=== PATIENT | female | born 1980 | race Hispanic/Latino ===

== ENCOUNTER 2020-09-22 19:24 | Emergency (ER) | payer SELFPAY ==
--- NOTE | 2020-09-22 19:28 | ED.GENADULT ---
HPI - General Adult General Chief complaint: Urogenital-Female Stated complaint: back pain/fever/abd pain Time Seen by Provider: 09/22/20 19:38 Source: patient and RN notes reviewed Mode of arrival: ambulatory Limitations: no limitations History of Present Illness HPI narrative: 40-year-old female presents with concern for bilateral flank pain, suprapubic pain, urinary urgency, decreased urine output, fever, chills, headache, nausea, low appetite. She denies diarrhea, vomiting, dysuria, frequency. Reports dark-colored urine. Reports her last menstrual period was 2 months ago, reports irregular menstrual periods at baseline, and history of tubal ligation. Reports symptoms started 3 days ago with bilateral flank pain. MD complaint: abdominal pain Related Data Home Medications Medication Instructions Recorded Confirmed glipizide 09/22/20 metformin 09/22/20 Allergies Allergy/AdvReac Type Severity Reaction Status Date / Time No Known Allergies Allergy Unverified 11/07/14 17:14 Review of Systems Review of Systems: Narrative: CONSTITUTIONAL: Denies malaise, chills, sweats, or fever. CARDIOVASCULAR: Denies chest pain, palpitations, or edema. RESPIRATORY: Denies cough or dyspnea. GASTROINTESTINAL: Denies abdominal pain, vomiting, diarrhea, bloody, or mucous stools. Reports suprapubic discomfort, nausea GENITOURINARY: Denies dysuria, frequency, or hematuria. Reports urine urgency, bilateral flank pain MUSCULOSKELETAL: Reports myalgia. NEUROLOGIC: Reports headache. All systems reviewed & are unremarkable except as noted in HPI and below PMFSH Comments At time of signature, agree with nursing past medical, surgical, social and family history. There is no relevant family history pertinent to the presenting complaint Exam Narrative: Exam Narrative: GENERAL: Well-appearing, well-nourished, and in no acute distress. HEAD: Normocephalic. EYES: PERRLA, conjunctivae clear. NECK: Supple. No lymphadenopathy CHEST: Clear to auscultation. No respiratory distress. HEART: Regular rate and rhythm. ABDOMEN: Soft, nontender upon palpation, nondistended, normal active bowel sounds, no palpable or pulsatile masses, no guarding. Bilateral CVA tenderness SKIN: Warm, dry, no rash. NEURO: Alert and oriented x3. PSYCH: Normal mood and affect Course Course Emergency Course: Patient is aware of diagnosis, understands and agrees to treatment plan. Anticipatory guidance given. Patient agrees to follow-up as directed and is aware of reasons to seek care at the emergency department. Portions of this record may have been created with voice recognition software Vital Signs Vital signs: Vital Signs Temperature 101.9 F H 09/22/20 19:37 Pulse Rate 131 H 09/22/20 19:37 Respiratory Rate 16 09/22/20 19:37 Blood Pressure 108/89 09/22/20 19:37 Pulse Oximetry 99 09/22/20 19:37 Temperature 101.9 F H 09/22/20 19:37 Pulse Rate 131 H 09/22/20 19:37 Respiratory Rate 16 09/22/20 19:37 Blood Pressure 108/89 09/22/20 19:37 Pulse Oximetry 99 09/22/20 19:37 Reviewed. Medical Decision Making MDM Narrative Medical decision making narrative: Exam findings and UA show no acute concerns or changes; patient is non-toxic appearing and is in no distress. Patient is appropriate for outpatient treatment and follow-up. Vital Signs Vital Signs: Vital Signs Temperature 101.9 F H 09/22/20 19:37 Pulse Rate 131 H 09/22/20 19:37 Respiratory Rate 16 09/22/20 19:37 Blood Pressure 108/89 09/22/20 19:37 Pulse Oximetry 99 09/22/20 19:37 Temperature 101.9 F H 09/22/20 19:37 Pulse Rate 131 H 09/22/20 19:37 Respiratory Rate 16 09/22/20 19:37 Blood Pressure 108/89 09/22/20 19:37 Pulse Oximetry 99 09/22/20 19:37 Lab Data Labs: UCG Bedside Result Negative Reference Range: Negative Urine Glucose Negative
[2020-09-22 19:37] VITALS: BP 108/89; PULSE 131; RESP 16; TEMP 38.8; O2SAT 99
== END 2020-09-22 19:57 | disposition home or self-care (01) ==
PROVIDERS: Emergency Provider Nurse Practitioner
DX: N12 Tubulo-interstitial nephritis, not specified as acute or chronic (principal); E11.9 Type 2 diabetes mellitus without complications
CPT/HCPCS: 81003; 81025; 87077; 87086; 87088; 87186; 99213; G0463